=== PATIENT | female | born 1980 | race Caucasian/White ===

== ENCOUNTER 2022-06-24 11:06 | Emergency (ER) | payer SELFPAY ==
[~2022-06-24] VITALS: Ht 167.6 cm; Wt 95.3 kg
[2022-06-24 11:08] VITALS: BP 144/106
--- NOTE | 2022-06-24 11:15 | NUR ---
42/F [facility] PD FOR MEDICAL CLEARANCE D/T HX OF HTN. PER PD AND PATIENT NO INJURY OR ALTERCATION PRIOR TO ARRIVAL TO ED. PATIENT DENIES PAIN OR ANY MEDICAL COMPLAINTS AT THIS TIME.
[2022-06-24 11:55] VITALS: BP 144/106
--- NOTE | 2022-06-24 11:55 | NUR ---
PATIENT BIB [employer]. PATIENT EXAMINED BY DR. POSADA. PATIENT MEDICALLY CLEARED AND RELEASED IN CUSTODY IN STABLE CONDITION. ORIGINAL PRE-BOOK FORM GIVEN TO OFFICER LEE ANN.
== END 2022-06-24 11:55 ==
LOC: MED 11:06
DX: Z02.89 Encounter for other administrative examinations (principal); M54.50 Low back pain, unspecified; J45.909 Unspecified asthma, uncomplicated; I10 Essential (primary) hypertension; E78.00 Pure hypercholesterolemia, unspecified; F31.9 Bipolar disorder, unspecified; F12.90 Cannabis use, unspecified, uncomplicated; Z88.0 Allergy status to penicillin; Z88.8 Allergy status to other drugs, medicaments and biological substances; Z98.890 Other specified postprocedural states
CPT/HCPCS: 99283